=== PATIENT | male | born 1940 | race Hispanic/Latino ===

== ENCOUNTER 2021-04-18 11:45 | Emergency (ER) | payer MEDICARE ==
--- NOTE | 2021-04-18 12:03 | Event Note ---
ED Screening Note ED Screening Note: BROUGHT HERE BY CAREGIVER [facility] SOB HAS TRACH ON HOME O2 HAS NOT BEEN ON IN THE LAST 20 MIN WHILE IN ER This initial assessment/diagnostic orders/clinical plan/treatment(s) is/are subject to change based on patients health status, clinical progression and re- assessment by fellow clinical providers in the ED. Further treatment and workup at subsequent clinical providers discretion. Patient/guardian urged not to elope from the ED as their condition may be serious if not clinically assessed and managed. Initial orders include: MAIN ER FOR EVAL
[2021-04-18 12:37] LABS: Basophils # (Auto) 0.2 K/mm3 (0.0-0.1); Eosinophils # (Auto) 0.3 K/mm3 (0.0-0.4); Eosinophils % (Auto) 3.7 % (0.0-4.3); Hematocrit 43.9 % (35.5-45.6); Hemoglobin 14.1 gm/dl (11.8-15.2); Lymphocytes # (Auto) 2.6 K/mm3 (1.2-5.4); Lymphocytes % (Auto) 29.5 % (13.4-35.0); Mean Corpuscular HGB Conc 32 % (32-34); Mean Corpuscular Volume 93 fl (84-94); Monocytes # (Auto) 0.9 K/mm3 (0.0-0.8); Monocytes % (Auto) 10.2 % (0.0-7.3); Platelet Count 216 K/mm3 (140-440); Red Blood Count 4.71 M/mm3 (3.65-5.03)
--- NOTE | 2021-04-18 12:55 | XRay Report ---
XR chest 1V ap INDICATION / CLINICAL INFORMATION: ON OXYGEN; SOB. COMPARISON: None available. FINDINGS: SUPPORT DEVICES: Tracheostomy terminates appropriately. HEART / MEDIASTINUM: Normal. LUNGS / PLEURA: Minimal bibasilar atelectasis. No airspace disease identified. No definite effusion. No pneumothorax. ADDITIONAL FINDINGS: No significant additional findings. IMPRESSION: 1. No acute findings. Signer Name: Justus Gonzalez MD Signed: 04/18/2021 12:51 PM Workstation Name: [id number]
[2021-04-18 12:56] LABS: Alanine Aminotransferase 25 units/L (7-56); Albumin 4.4 g/dL (3.9-5); BUN/Creatinine Ratio 36; Blood Urea Nitrogen 29 mg/dL (9-20); Hemolysis Index 9
--- NOTE | 2021-04-18 14:18 | Emergency Department Report ---
ED Shortness of Breath HPI - General Chief Complaint: Dyspnea/Respdistress Stated Complaint: RENAE Time Seen by Provider: 04/18/21 12:01 Source: patient Mode of arrival: Ambulatory Limitations: Other - History of Present Illness Initial Comments: 80-year-old male with history of laryngectomy with tracheostomy dependence presents to the hospital with complaints of shortness of breath. At time of my evaluation patient is breathing comfortably and states he feels better since respiratory suction his airway. Patient lives in [place] and is visiting on [facility] side of [facility]. His suction catheter and suction machine are located in [place]. He developed increasing issues of shortness of breath he was unable to suction prior to arrival. He complains of a lot of coughing without fever. Since being suctioned he is currently asymptomatic and feels better. Patient states he takes 4 L of oxygen at home. - Related Data Allergies Allergy/AdvReac Type Severity Reaction Status Date / Time No Known Allergies Allergy Unverified 04/18/21 11:58 ED Review of Systems ROS: Stated complaint: RENAE Other details as noted in HPI Comment: All other systems reviewed and negative ED Past Medical Hx - Past Medical History Additional medical history: trach ED Physical Exam - General Limitations: Other - Other Other exam information: General: No acute distress Head: Atraumatic Eyes: normal appearance ENT: Moist mucous membranes Neck: Tracheostomy, no stridor, patient cannot speak due to laryngectomy and writes his responses to communicate Chest: Clear to auscultation bilaterally, no respiratory CV: Regular rate and rhythm Abdomen: Soft, normal bowel sounds, nontender, nondistended, no rebound or guarding Back: Normal inspection Extremity: Normal inspection, full range of motion Neuro: Alert O x 3, no facial asymmetry, speech clear, no gross motor sensory de ficit Psych: Appropriate behavior Skin: No rash ED Course Vital Signs 04/18/21 12:01 Temperature 98.4 F Pulse Rate 85 Respiratory 28 H Rate Blood Pressure 99/65 [Right] O2 Sat by Pulse 88 Oximetry ED Medical Decision Making - Lab Data Result diagrams: 04/18/21 12:14 04/18/21 12:14 Lab Results 04/18/21 04/18/21 04/18/21 Range/Units 12:14 12:14 12:14 WBC 8.7 (4.5-11.0) K/mm3 RBC 4.71 (3.65-5.03) M/mm3 Hgb 14.1 (11.8-15.2) gm/dl Hct 43.9 (35.5-45.6) % MCV 93 (84-94) fl MCH 30 (28-32) pg MCHC 32 (32-34) % RDW 17.0 H (13.2-15.2) % Plt Count 216 (140-440) K/mm3 Lymph % (Auto) 29.5 (13.4-35.0) % [place] % (Auto) 10.2 H (0.0-7.3) % Eos % (Auto) 3.7 (0.0-4.3) % Baso % (Auto) 2.0 H (0.0-1.8) % Lymph # (Auto) 2.6 (1.2-5.4) K/mm3 [place] # (Auto) 0.9 H (0.0-0.8) K/mm3 Eos # (Auto) 0.3 (0.0-0.4) K/mm3 Baso # (Auto) 0.2 H (0.0-0.1) K/mm3 Seg Neutrophils % 54.6 (40.0-70.0) % Seg Neutrophils # 4.8 (1.8-7.7) K/mm3 Sodium 135 L (137-145) mmol/L Potassium 4.3 (3.6-5.0) mmol/L Chloride 97.6 L (98-107) mmol/L Carbon Dioxide 23 (22-30) mmol/L Anion Gap 19 mmol/L BUN 29 H (9-20) mg/dL Creatinine 0.8 (0.8-1.3) mg/dL Estimated GFR > 60 ml/min BUN/Creatinine Ratio 36 % Glucose 108 H (75-100) mg/dL Lactic Acid 1.10 (0.7-2.0) mmol/L Calcium 10.0 (8.4-10.2) mg/dL Total Bilirubin 0.40 (0.1-1.2) mg/dL AST 20 (5-40) units/L ALT 25 (7-56) units/L Alkaline Phosphatase 103 (35-129) units/L Troponin T < 0.010 (0.00-0.029) ng/mL NT-Pro-B Natriuret Pep (0-900) pg/mL Total Protein 7.5 (6.3-8.2) g/dL Albumin 4.4 (3.9-5) g/dL Albumin/Globulin Ratio 1.4 % 04/18/21 Range/Units 12:14 WBC (4.5-11.0) K/mm3 RBC (3.65-5.03) M/mm3 Hgb (11.8-15.2) gm/dl Hct (35.5-45.6) % MCV (84-94) fl MCH (28-32) pg MCHC (32-34) % RDW (13.2-15.2) % Plt Count (140-440) K/mm3 Lymph % (Auto) (13.4-35.0) % [place] % (Auto) (0.0-7.3) % Eos % (Auto) (0.0-4.3) % Baso % (Auto) (0.0-1.8) % Lymph # (Auto) (1.2-5.4) K/mm3 [place] # (Auto) (0.0-0.8) K/mm3 Eos # (Auto) (0.0-0.4) K/mm3 Baso # (Auto) (0.0-0.1) K/mm3 Seg Neutrophils % (40.0-70.0) % Seg Neutrophils # (1.8-7.7) K/mm3 Sodium (137-145) mmol/L Potassium (3.6-5.0) mmol/L Chloride (98-107) mmol/L Carbon Dioxide (22-30) mmol/L Anion Gap mmol/L BUN (9-20) mg/dL Creatinine (0.8-1.3) mg/dL Estimated GFR ml/min BUN/Creatinine Ratio % Glucose (75-100) mg/dL Lactic Acid (0.7-2.0) mmol/L Calcium (8.4-10.2) mg/dL Total Bilirubin (0.1-1.2) mg/dL AST (5-40) units/L ALT (7-56) units/L Alkaline Phosphatase (35-129) units/L Troponin T (0.00-0.029) ng/mL NT-Pro-B Natriuret Pep 132.8 (0-900) pg/mL Total Protein (6.3-8.2) g/dL Albumin (3.9-5) g/dL Albumin/Globulin Ratio % - Radiology Data Radiology results: report reviewed XR chest 1V ap INDICATION / CLINICAL INFORMATION: ON OXYGEN; SOB. COMPARISON: None available. FINDINGS: SUPPORT DEVICES: Tracheostomy terminates appropriately. HEART / MEDIASTINUM: Normal. LUNGS / PLEURA: Minimal bibasilar atelectasis. No airspace disease identified. No definite effusion. No pneumothorax. ADDITIONAL FINDINGS: No significant additional findings. IMPRESSION: 1. No acute findings. - Medical Decision Making 80-year-old male presents to the hospital with shortness of breath due to tracheostomy mucus. Respiratory therapist was able to suction mucus in the outside and the entry site of the tracheostomy tube with improvement in respiratory symptoms. Patient did not have access to a suction machine prior to arrival. Labs revealed mild elevated BUN but otherwise unremarkable. Repeat vital signs include a BP of 114/71, saturation 94 to 90% 96%, and respiratory rate of 16 Critical Care Time: No Critical care attestation.: If time is entered above; I have spent that time in minutes in the direct care of this critically ill patient, excluding procedure time. ED Disposition Clinical Impression: Tracheostomy care Disposition: 01 HOME / SELF CARE / HOMELESS Is pt being admited?: No Does the pt Need Aspirin: No Condition: Stable Instructions: How to Suction a Tracheostomy Tube, Adult Additional Instructions: Follow-up with your doctor or doctor. Return if symptoms worsen as indicated by your discharge instructions. Time of Disposition: 14:18
[2021-04-18 16:01] VITALS: BP 110/56
--- NOTE | 2021-04-19 10:39 | Electrocardiograph Report ---
[facility] Test Date: 2021-04-18 Test Time: 12:27:05 Pat Name: CHELSY SANTILLAN Department: Room: Gender: M Site Acquisition Manager: ADALGISA : 1940 Requested By: DEBBY NG Order Number: [id number] Reading MD: Virgilio aGllegos Measurements Intervals [place] Rate: 79 P: 70 [place]: 161 QRS: -2 QRSD: 83 T: 77 QT: 380 QTc: 436 Interpretive Statements Sinus rhythm Anteroseptal infarct, age indeterminate No previous ECG available for comparison Electronically Signed On 04-19-2021 10:38:45 EST by Virgilio Gallegos
== END 2021-04-18 15:30 | disposition home or self-care (01) ==
LOC: ED 11:45
DX: Z43.0 Encounter for attention to tracheostomy (principal)
CPT/HCPCS: 36415; 71045; 80053; 82140; 83880; 84484; 85025; 93005; 93010; 99283